=== PATIENT | female | born 1995 | race Caucasian/White ===

== ENCOUNTER 2024-06-05 11:45 | Outpatient (CLI) | payer OTHER ==
--- NOTE | 2024-06-08 15:20 | Ultrasound Report ---
PROCEDURE: Transvaginal INDICATIONS: TV ONLY - DYSMENORRHEA TECHNIQUE: Transvaginal ultrasound of the pelvis was obtained. COMPARISON: None. FINDINGS: Uterine size: Uterus measures 7.5 x 3.6 x 4.0 cm, and is anteverted. Myometrium: The myometrium is homogeneous. Endometrium: The endometrium measures 2 mm in combined thickness. Right ovary: The right ovary measures 3.9 x 2.8 x 2.9 cm. Calculated ovarian volume 16.4 cc. Great er than 12 follicles Left ovary: The left ovary measures 3.3 x 2.1 x 2.2 cm. Calculated ovarian volume 7.8 cc. Greater t armenta 12 follicles Other: Free fluid in the posterior cul-de-sac IMPRESSION: Greater than 12 follicles noted bilateral ovaries. This finding has been correlated with polycystic o varian syndrome in the proper clinical setting. Reviewed by: Berhane Galvez MD on 06/08/2024 2:19 PM MARKO Approved by: Berhane Galvez MD on 06/08/2024 2:19 PM [email or web address] Station ID: [id number]
== END 2024-06-05 11:46 | disposition home or self-care (01) ==
LOC: DI 11:45
PROVIDERS: ATTEND Nurse Practitioner Family
DX: N94.6 Dysmenorrhea, unspecified (principal)